=== PATIENT | female | born 1990 | race Caucasian/White ===

== ENCOUNTER 2024-11-07 09:51 | Emergency (ER) | payer BC ==
[2024-11-07 09:55] VITALS: RESP 20
[2024-11-07] MEDS: DEXAMETHASONE SOD PHOSPHATE 10 MG/ML 1 ML VIAL IVP STA (10:40)
[2024-11-07] MEDS: ORPHENADRINE 30 MG/ML 2 ML VIAL IVP STA (10:42)
[2024-11-07] MEDS: KETOROLAC 15 MG/ML 1 ML VIAL IVP STA (10:43)
[2024-11-07] MEDS: LIDOCAINE 4% PATCH TOPICAL ONE (10:45)
--- NOTE | 2024-11-07 11:11 | CT ---
EXAMINATION TYPE: CT lumbar spine wo con CT DLP: 704.9 mGycm, Automated exposure control for dose reduction was used. DATE OF EXAM: 11/07/2024 10:58 AM COMPARISON: None. CLINICAL INDICATION:Female, 33 years old with history of Pain, difficulty ambulating; PHH, Severe low back pain. No injury. Difficulty ambulating., pain TECHNIQUE: Multiple axial images were obtained from the midportion of T11 through the sacroiliac kailash nts. Soft tissue and bone windows in coronal and sagittal planes were obtained and reviewed. Contrast used: none. Oral contrast used: none. FINDINGS: Alignment: There are 5 lumbar type vertebral bodies within normal alignment. Bone: No evidence of fracture is identified. There is a mixed sclerotic/lucent appearing lesion with in the left posterior iliac bone measuring grossly 3.8 x 1.8 cm. No cortical disruption identified. N o periosteal reaction. No soft tissue component. Discs: T12-L1: No spinal canal or neural foraminal stenosis is identified. L1-L2: No spinal canal or neural foraminal stenosis is identified. L2-L3: No spinal canal or neural foraminal stenosis is identified. L3-L4: No spinal canal or neural foraminal stenosis is identified. L4-L5: Broad-based disc bulge with minimal effacement of anterior thecal sac. No significant central canal stenosis. No significant neuroforaminal stenosis. L5-S1: Eccentric left disc bulge extending in the left foraminal and subarticular zone with mild effa cement of the anterior thecal sac. There is abutment of the exiting left S1 nerve root. No significan t central canal stenosis. There is mild left neural foraminal stenosis. Other: Small amount of free fluid in the pelvic cul-de-sac which is likely physiologic. IMPRESSION: 1. No evidence for spinal fracture. 2. L5-S1 disc bulge resulting in mild left neural foraminal stenosis and abutment of the exiting left S1 nerve root. No significant central canal stenosis. 3. Mixed sclerotic/lucent indeterminate lesion involving the posterior left iliac bone. May represent a nonossifying fibroma versus other etiologies. Recommend further workup with nuclear medicine bone scan. [facility], , 11/07/2024 11:09 AM
--- NOTE | 2024-11-07 11:11 | ED ---
Back Pain HPI - General Chief Complaint: Back Pain/Injury Stated Complaint: Back pain Time Seen by Provider: 11/07/24 10:25 Source: patient, RN notes reviewed Mode of arrival: ambulatory Limitations: no limitations - History of Present Illness Initial Comments: This is a 33-year-old female who presents to the emergency department for low back pain. Patient reports increasing low back pain over the last week. States that last night she had a sharp pain in her lower back and she was unable to ambulate or put any pressure on her extremities. Pain does not radiate down any of her legs. Denies any loss of bowel/bladder control or saddle anesthesia. She does have a history of sciatica and initially thought it was related to that. However, states that this feels worse. Denies any injuries. She tried taking ibuprofen last night, however this was not effective. MD Complaint: back pain - Related Data Previous Rx's Medication Instructions Recorded HYDROcodone/APAP 5-325MG [Weiner 1 tab PO Q6HR PRN 3 Days #12 tab 11/07/24 5-325] Lidocaine 5% Patch [Lidoderm 5% 1 patch TOPICAL DAILY PRN #30 patch 11/07/24 Patch] methocarbamoL [Robaxin-750] 1,500 mg PO TID PRN #30 tab 11/07/24 predniSONE 50 mg PO DAILY 5 Days #5 tab 11/07/24 Allergies Allergy/AdvReac Type Severity Reaction Status Date / Time No Known Allergies Allergy Verified 11/07/24 09:55 Review of Systems ROS Statement: Those systems with pertinent positive or pertinent negative responses have been documented in the HPI. ROS Other: All systems not noted in ROS Statement are negative. Past Medical History Past Medical History: No Reported History Past Surgical History: No Surgical Hx Reported Smoking Status: Never smoker Past Alcohol Use History: Occasional Past Drug Use History: None Reported General Exam Limitations: no limitations General appearance: alert, in no apparent distress Head exam: Present: atraumatic, normocephalic, normal inspection Respiratory exam: Present: normal lung sounds bilaterally. Absent: respiratory distress, wheezes, rales, rhonchi, stridor Cardiovascular Exam: Present: regular rate, normal rhythm Back exam: Present: other (Tenderness to palpation over the lower lumbar spine) Neurological exam: Present: alert, oriented X3, CN II-XII intact Psychiatric exam: Present: normal affect, normal mood Skin exam: Present: warm, dry, intact, normal color. Absent: rash Course Vital Signs 11/07/24 11/07/24 11/07/24 09:52 11:36 13:00 Temperature 98.2 F 98.1 F 98.1 F Pulse Rate 109 H 81 76 Respiratory 20 20 20 Rate Blood Pressure 130/85 123/76 118/73 O2 Sat by Pulse 98 99 99 Oximetry Medical Decision Making - Medical Decision Making This is a 33-year-old female who presents to the emergency department for low back pain. Was pt. sent in by a medical professional or institution? @ -No Did you speak to anyone other than the patient for history? @ -No Did you review nursing and triage notes? @ -Yes, and I agree, it is accurate with regards to the patient's symptoms. Were old charts reviewed? @ -No Differential Diagnosis? @ -Differential Back Pain: Strain, zoster, cauda equina syndrome, epidural abscess, vertebral osteomyelitis, discitis, fracture, subluxation, disc herniation, DJD, spinal stenosis, dissection, AAA, pancreatitis, peptic ulcer disease, pyelonephritis, kidney stone, this is not meant to be an all-inclusive list. EKG interpreted by me (3pts min.)? @ -Not obtained X-rays interpreted by me (1pt min.)? @ -Not obtained CT interpreted by me (1pt min.)? @ -CT scan of the lumbar spine obtained. My interpretation identifies no acute fractures. U/S interpreted by me (1pt. min.)? @ -Not obtained What testing was considered but not performed? (CT, X-rays, U/S, labs)? Why? @ -None What meds were considered but not given? Why? @ -None Did you discuss the management of the patient with other professionals? @ -No Did you reconcile home meds? @ -No Was smoking cessation discussed for >3mins.? @ -No Was critical care preformed (if so, how long)? @ -No Were there social determinants of health that impacted care today? How? ( Homelessness, low income, unemployed, alcoholism, drug addiction, transportation, low edu. Level, literacy, decrease access to med. care, half-way, rehab)? @ -No Was there de-escalation of care discussed even if they declined? (Discuss DNR or withdrawal of care, Hospice)? @ -No What co-morbidities impacted this encounter? (DM, HTN, Smoking, COPD, CAD, Cancer, CVA, Hep., AIDS, mental health diagnosis, sleep apnea, morbid obesity)? @ -None Was patient admitted / discharged? @ -Discharged. CT scan of the lumbar spine obtained demonstrating an L5-S1 disc bulge resulting in mild left neural foraminal stenosis and abutment of the exiting left S1 nerve root. She does also have a mixed sclerotic/lucent lesion involving the posterior left iliac bone. They advised that this may represent a nonossifying fibroma versus other etiologies. They advised further workup with a nuclear medicine bone scan. Findings reviewed with the patient. Symptoms likely related to the disc bulge. Pain was controlled in the emergency department. Pain medication prescribed for further symptomatic management. She was also given information for follow-up with orthopedic spine. Advised she contact them for a follow-up appointment. Advised that she will also need further imaging on the lesion of the left iliac bone. Patient discharged home in stable condition. Case discussed with ED attending Dr. Celaya. Return precautions reviewed in depth, the patient is instructed to return to the emergency department with any new, worsening, or concerning symptoms. Patient verbalized understanding. Undiagnosed new problem with uncertain prognosis? @ -None Drug Therapy requiring intensive monitoring for toxicity (Heparin, Nitro, Insulin, Cardizem)? @ -None Were any procedures done? @ -None Diagnosis/symptom? @ -Lumbar disc bulge, neuroforaminal stenosis Acute, or Chronic, or Acute on Chronic? @ -Acute Uncomplicated (without systemic symptoms) or Complicated (systemic symptoms)? @ -Uncomplicated Side effects of treatment? @ -None Exacerbation, Progression, or Severe Exacerbation] @ -Not applicable Poses a threat to life or bodily function? @ -The pain is limiting her ability to function to some extent - Radiology Data Radiology results: report reviewed, image reviewed Disposition Clinical Impression: Bulging of lumbar intervertebral disc, Neural foraminal stenosis of lumbar spine Disposition: HOME SELF-CARE Instructions (If sedation given, give patient instructions): Lumbar Disc Herniation (ED), Acute Low Back Pain (ED) Additional Instructions: Return to the emergency department with any new, worsening, or concerning symptoms. Take the prednisone daily for 5 days. Take the Robaxin as 1 to 2 tablets up to 3-4 times daily. Take the Weiner sparingly when your pain is the most severe. You can also apply the lidocaine patches daily. Contact orthopedics as listed below first thing tomorrow morning. Let them know that you were seen in the emergency department for back pain and found to have a bulging disc in your lower back. They will schedule you for a follow up appointment. You do also have a bone cyst in the left side of your pelvis and you will need further imaging with something like a nuclear bone scan. This can be done with orthopedics or your primary care provider. Follow up with your primary care provider in 1-2 days. Prescriptions: Lidocaine 5% Patch [Lidoderm 5% Patch] 1 patch TOPICAL DAILY PRN #30 patch PRN Reason: Pain HYDROcodone/APAP 5-325MG [Weiner 5-325] 1 tab PO Q6HR PRN 3 Days #12 tab PRN Reason: Pain predniSONE 50 mg PO DAILY 5 Days #5 tab methocarbamoL [Robaxin-750] 1,500 mg PO TID PRN #30 tab PRN Reason: Pain Is patient prescribed a controlled substance at d/c from ED?: Yes When asked, does pt state using other controlled substances?: No If prescribed controlled substance>3 days was MAPS reviewed?: Prescribed <3 Days Referrals: Chadd Kan MD [Primary Care Provider] - 1-2 days Martin Turner DO [Doctor of Osteopathic Medicine] - 1-2 days Time of Disposition: 12:35
[2024-11-07 11:38] VITALS: TEMP 98.1
[2024-11-07] MEDS: HYDROmorphone 2 MG/ML 1 ML SYRINGE IVP STA (11:54)
[2024-11-07 13:01] VITALS: BP 118/73; PULSE 76
== END 2024-11-07 13:33 | disposition home or self-care (01) ==
LOC: EC 09:51
DX: M51.370 Other intervertebral disc degeneration, lumbosacral region with discogenic back pain only (principal); M48.061 Spinal stenosis, lumbar region without neurogenic claudication
CPT/HCPCS: 72131; 99284; 96374; 96375; J1171; J1100; J2360; J1885

== ENCOUNTER → 2024-11-11 | Outpatient (CLI) | payer BC ==
--- NOTE | 2024-11-11 21:19 | NM ---
EXAMINATION TYPE: NM bone scan whole body DATE OF EXAM: 11/11/2024 COMPARISON: Correlation CT lumbar spine 11/07/2024 CLINICAL INDICATION: Female, 34 years old with history of M89.9 DISORDER OF BONE, UNSPECIFIED; patien t with lumbar/SI joint pain for one week. Delayed whole-body scanning was performed following the injection of 23.8 mCi Tc 99m MDP. Images acq uired 3 hours post injection. FINDINGS: The nearly 4 cm area of mixed sclerosis/lucency along with groundglass density posterior left iliac b one shows no associated abnormal tracer activity or asymmetry from the contralateral side. There is m ild degenerative activity suggested at the pubic symphysis. Otherwise, no abnormal tracer activity is seen. IMPRESSION: The mixed sclerotic/lucent lesion posterior left iliac bone seen on patient's recent lumbar spine CT shows no corresponding abnormal activity on bone scan. This would favor a benign etiology such as fib mariela dysplasia. Recommend follow-up MRI in 6 months to reassess for any changes and for more detailed assessment of internal composition. Mild degenerative activity at the pubic symphysis. Otherwise, no discrete abnormality identified. [facility], , 11/11/2024 9:17 PM
== END | disposition home or self-care (01) ==
LOC: RADNMMAIN 10:19
PROVIDERS: ATTEND Family Medicine
DX: M89.9 Disorder of bone, unspecified (principal)
CPT/HCPCS: 78306; A9503